=== PATIENT | female | born 1985 | race Caucasian/White ===

== ENCOUNTER 2022-09-22 16:38 | Outpatient (REF) | payer OTHER, SELFPAY ==
[2022-09-23 12:42] LABS: Influenza A PCR NEGATIVE (Negative); Influenza B PCR NEGATIVE (Negative); Resp Syncy Virus RNA Qual PCR NEGATIVE (Negative); SARS COV2 PCR INHOUSE NEGATIVE (Negative)
== END 2022-09-22 16:39 | disposition home or self-care (01) ==
LOC: HO.LAB 16:38
PROVIDERS: Visit Provider Nurse Practitioner Family
DX: J00 Acute nasopharyngitis [common cold] (principal); R09.81 Nasal congestion; Z20.822 Contact with and (suspected) exposure to COVID-19
CPT/HCPCS: 0241U

== ENCOUNTER 2023-06-19 08:41 | Outpatient (AMB) | payer OTHER, SELFPAY ==
[2023-06-19 08:48] VITALS: BP 120/72; PULSE 68; O2SAT 97; BMI 37.8
--- NOTE | 2023-06-19 08:48 | MHC.PC.OV ---
Vital Signs 06/19/23 08:48 Height 5 ft 5 in Weight 227 lb BMI 37.8 BP 120/72 Blood Pressure Location Lt brachial Position Sitting Pulse 68 Pulse Source Pulse Oximeter Pulse Oximetry (%) 97 Oxygen Delivery Method Room Air Intake Visit Reasons: Left Knee Pain Intake Note: Patient is here with severe left knee pain for a few weeks, not subsiding. No known injury. Allergies No Known Allergies Allergy (Verified 06/19/23 08:50) Medication List - Last Reconciled 06/19/23 by Colin Brown MD condoms - female As directed levonorgestrel (Liletta) 1 device intrauterine ONCE loratadine (Allergy Relief (loratadine)) 10 mg PO DAILY valacyclovir 500 mg PO DAILY Tobacco use date assessed: 06/19/23 Dental Screening Dental Screen Date: 06/19/23 Did you have a dental visit in the last 12 months?: No Did you have a dental problem in the last 6 months where you did not have access to dental care?: No Was dental information given to patient?: No HPI Left Knee Pain HPI Details 37 y/o female presents with complaints of L knee pain. [facility] Surgical History History of carpal tunnel release Radius and ulna distal fracture Family History Mother No problems noted. Maternal Grandmother Cancer Depression Paternal Grandmother No problems noted. 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 1. Little interest or pleasure in doing things: not at all 2. Feeling down, depressed, or hopeless: not at all 3. Trouble falling or staying asleep, or sleeping too much: not at all 4. Feeling tired or having little energy: not at all 5. Poor appetite or overeating: not at all 6. Feeling bad about yourself - or that you are a failure or have let yourself or your family down: not at all 7. Trouble concentrating on things, such as reading the newspaper or watching television: not at all 8. Moving or speaking so slowly that other people could have noticed. Or the opposite - being so fidgety or restless that you have been moving around a lot more than usual: not at all 9. Thoughts that you would be better off or of hurting yourself in some way: not at all Total score: 0 Source: Developed by Drs. Kong Mcdowell, Shara Mueller, Kyle Mraio and colleagues, with an educational adan from [employer]. Thrive Questionnaire I am a: Patient What is your living situation today?: I have a steady place to live Within the past 12 months, did the food you bought not last and you didn't have the money to get more?: Never true Within the past 12 months, did you worry whether your food would run out before you got money to buy more?: Never true Do you have trouble paying for medicines?: No Do you have trouble getting transportation to medical appointments?: No Do you have trouble paying your heating and electricity bill?: No Do you have trouble taking care of your child, family member or friend?: No Do you have trouble with day-to-day activities such as bathing, preparing meals, shopping, managing finances, etc.?: No Are you currently unemployed and looking for a job?: No Are you interested in more education?: No AUDIT C Alcohol Use Questionnaire (AUDIT-C) 1. How often do you have a drink containing alcohol?: Monthly or less 2. How many drinks containing alcohol do you have on a typical day when you are drinking?: 1 or 2 3. How often do you have six or more drinks on one occasion?: Never Total Score: 1 SILVINO-7 AMB Questionnaire SILVINO-7 Feeling nervous, anxious, or on edge: 0 = Not at all Not being able to stop or control worryin = Not at all Worrying too much about different things: 0 = Not at all Trouble relaxin = Not at all Being so restless that it is hard to sit still: 0 = Not at all Becoming easily annoyed or irritable: 0 = Not at all Feeling afraid as if something awful might happen: 0 = Not at all Total SILVINO-7 score (0-4 normal; 5-9 mild; 10-14 moderate; 15-21 severe): 0 Source: Developed by Drs. Kong Mcdowell, Shara Mueller, Kyle Mario and colleagues, with an educational adan from [employer]. Review of Systems Const Denies chills, Denies fatigue, Denies fever(s), Denies headache(s) and Denies weakness ENT Denies dizziness and Denies headache(s) Card Denies dyspnea Resp Denies cough, Denies dyspnea, Denies wheezing and Denies other (shortness of breath) Musc Denies numbness and Denies tingling Neuro Denies dizziness, Denies headache(s), Denies numbness, Denies tingling and Denies weakness Psych Denies anxiety and Denies depression Endo Denies fatigue Aller/Immun Denies wheezing Physical exam (Primary Care) Vital Signs: Last Vital Signs Pulse 68 06/19/23 08:48 BP 120/72 06/19/23 08:48 Pulse Ox 97 06/19/23 08:48 Oxygen Delivery Method Room Air 06/19/23 08:48 BMI result Body Mass Index 37.8 Tobacco/Smoking Status: Tobacco use Status Tobacco use date assessed 06/19/23 06/19/23 08:53 Patient Tobacco Use Status Never used Tobacco 06/19/23 08:53 e-Cigarette/Vaping Use Never Used 06/19/23 08:53 PHQ-9: PHQ-9 Score PHQ-9: Total score 0 06/19/23 08:57 Const General: well developed; No acute distress Nutritional Appearance: well nourished Orientation/consciousness: patient oriented x3 HENMT Head: Yes normocephalic and Yes atraumatic Eyes General: appearance normal, both eyes and all related structures Pupils: Equal, round and reactive pupils present EOM: EOMs intact bilaterally Resp Effort & Inspection: normal respiratory effort Neuro General: patient oriented x3 and gait normal Cranial nerves: Yes Equal, round and reactive pupils present Extrem Other: L lateral joint space tenderness palpation Negative mcmurrays test and patellar grind test Negative drawers sign Psych Affect: normal affect Assessment and Plan Assessment & Plan (1) Left knee pain: Code(s): M25.562 - Pain in left knee Plan: Left knee lateral joint space tenderness but negative Alan's and patellar grind test. Also negative drawer signs. Will check an x-ray. Advised relative rest, ice/heat and NSAIDs Will send script for meloxicam We can follow-up in a week by telemedicine to see if she is improving, otherwise will refer to ortho and or PT Orders: Orders XR knee LT 2V Today M25.562 - Pain in left knee Coding Level of Care Code Est Pt Level 3 (76535) Diagnoses Left knee pain M25.562
== END 2023-06-19 09:12 | disposition home or self-care (01) ==
PROVIDERS: PCP Hospitalist; Visit Provider Family Medicine
DX: M25.562 Pain in left knee (principal)
CPT/HCPCS: 99213

== ENCOUNTER 2023-06-20 15:43 | Outpatient (REF) | payer OTHER, SELFPAY ==
--- NOTE | ~2023-06-20 | XR_ITS ---
EXAMINATION: XR KNEE, LEFT CLINICAL INFORMATION: Pain left knee COMPARISON: None available. TECHNIQUE: Two views of the left knee. FINDINGS: The tricompartment joint space is maintained normal. No visible acute fracture, dislocation or subluxation seen. There is no joint effusion. There are no loose bodies. XR/XR knee LT 2V IMPRESSION: Unremarkable left knee exam.
== END 2023-06-20 15:44 | disposition home or self-care (01) ==
LOC: HO.XRAY 15:43
PROVIDERS: PCP Hospitalist; Visit Provider Family Medicine
DX: M25.562 Pain in left knee (principal)
CPT/HCPCS: 73560

== ENCOUNTER 2023-07-12 14:50 | Outpatient (AMB) | payer OTHER, SELFPAY ==
--- NOTE | 2023-07-12 15:00 | A.OFFPC_ITS ---
Vital Signs 07/12/23 15:01 Height 5 ft 5 in Weight 233 lb 3 oz BMI 38.8 BP 112/64 Blood Pressure Location Lt brachial Position Sitting Respiration 14 Pulse 74 Pulse Source Pulse Oximeter Temp 98.9 F Temp Source Temporal Artery Scan Pulse Oximetry (%) 96 Oxygen Delivery Method Room Air Intake Visit Reasons: back pain, PT referral Intake Note: Patient reports having low back pain x3 days after bending over to pick pulling machine tender a toy off of the floor. Patient reports pain to the low back as sharp and radiating down her leg. Dye Box Operator Required: No Accompanied by: Self / Same As Patient Allergies No Known Allergies Allergy (Verified 07/12/23 15:05) Tobacco use date assessed: 06/19/23 Dental Screening Dental Screen Date: 07/12/23 Did you have a dental visit in the last 12 months?: Yes Did you have a dental problem in the last 6 months where you did not have access to dental care?: No Was dental information given to patient?: Patient has dentist HPI back pain, PT referral HPI Details 37 y/o female presents with complaints of back pain x3 days after bending over to pick pulling machine tender a toy off of the floor. She reports she has trialed physical therapy for her back before in the past which has helped. She had a knee x-ray 06/20/23 for her L knee pain. She reports she had a dull L knee pain which became progressively worse until she felt the need to see a doctor. L knee x-ray was unremarkable. She had not trialed meloxicam or physical therapy yet. [facility] Surgical History History of carpal tunnel release Radius and ulna distal fracture Family History Mother No problems noted. Maternal Grandmother Cancer Depression Paternal Grandmother No problems noted. 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 Cognitive needs: No Hearing needs: No Vision needs: No Review of Systems Musc Reports back pain Physical exam (Primary Care) Vital Signs: Last Vital Signs Temp 98.9 F 07/12/23 15:01 Pulse 74 07/12/23 15:01 Resp 14 07/12/23 15:01 BP 112/64 07/12/23 15:01 Pulse Ox 96 07/12/23 15:01 Oxygen Delivery Method Room Air 07/12/23 15:01 BMI result Body Mass Index 38.8 Tobacco/Smoking Status: Tobacco use Status Tobacco use date assessed 06/19/23 07/12/23 15:07 Patient Tobacco Use Status Never used Tobacco 07/12/23 15:07 e-Cigarette/Vaping Use Never Used 07/12/23 15:07 Assessment and Plan Assessment & Plan (1) Back pain: Code(s): M54.9 - Dorsalgia, unspecified Plan: Recent onset back pain. Patient has a history of prior back pain as well. History of present back pain and exam are most consistent with muscle strain Advised ice/heat Can use meloxicam already prescribed Can use muscle relaxant which is already prescribed; cyclobenzaprine 5 mg daily. She can increase her evening dose to 10 mg. Start physical therapy If not improving, would image and refer to ortho (2) Left knee pain: Code(s): M25.562 - Pain in left knee Plan: Following up on knee pain, the x-ray was negative for any bony injuries, joint space narrowing or effusions. Review of her pain today reveals that this is fairly superficial left lateral knee pain which appears at insertion points of quadriceps muscles on proximal tibia. Likely some tendinitis Start physical therapy Use meloxicam Ice/heat If not improving will refer to ortho and consider further imaging Orders: Orders PT Evaluation and Treatment Today M25.562 - Pain in left knee, M54.9 - Dorsalgia, unspecified Coding Level of Care Code Est Pt Level 3 (10125) Diagnoses Back pain M54.9 Left knee pain M25.562
[2023-07-12 15:01] VITALS: BP 112/64; PULSE 74; RESP 14; TEMP 37.2; O2SAT 96; BMI 38.8
== END 2023-07-12 16:05 | disposition home or self-care (01) ==
PROVIDERS: PCP Hospitalist; Visit Provider Family Medicine
DX: M54.9 Dorsalgia, unspecified (principal); M25.562 Pain in left knee
CPT/HCPCS: 99213